=== PATIENT | female | born 1960 | race Two or more races ===

== ENCOUNTER 2016-10-10 16:47 | Emergency (ER) | payer SELFPAY ==
[~2016-10-10] VITALS: Ht 162.6 cm; Wt 74.4 kg
[2016-10-10 17:08] VITALS: BP 189/101
[2016-10-10] MEDS ORDERED: AMMONIA 0.33 ML INHALANT IN ONE (20:21)
== END 2016-10-10 18:10 | disposition left against medical advice (07) ==
LOC: ER 16:56
DX: M25.511 Pain in right shoulder (principal); M54.2 Cervicalgia; Z53.21 Procedure and treatment not carried out due to patient leaving prior to being seen by health care provider; V49.59XA Passenger injured in collision with other motor vehicles in traffic accident, initial encounter; Y93.89 Activity, other specified; Y99.8 Other external cause status; Y92.410 Unspecified street and highway as the place of occurrence of the external cause